=== PATIENT | female | born 1985 | race African-American/Black ===

== ENCOUNTER 2016-10-21 14:31 | Emergency (ER) | payer OTHER ==
[~2016-10-21] VITALS: Ht 170.2 cm; Wt 87.0 kg
[~2016-10-21 14:31] MED LIST: ACET-2708
[2016-10-21 15:07] VITALS: BP 99/76
[2016-10-21] MEDS ORDERED: KETOROLAC 60MG/2ML VIAL IM ONE (17:00)
== END 2016-10-21 17:27 | disposition home or self-care (01) ==
LOC: ER 16:59
DX: S39.012A Strain of muscle, fascia and tendon of lower back, initial encounter (principal); M25.512 Pain in left shoulder; M25.569 Pain in unspecified knee; V43.52XA Car driver injured in collision with other type car in traffic accident, initial encounter; Y93.89 Activity, other specified; Y92.411 Interstate highway as the place of occurrence of the external cause
CPT/HCPCS: 99283; J1885

== ENCOUNTER 2016-12-01 18:50 | Emergency (ER) | payer OTHER ==
[~2016-12-01] VITALS: Ht 167.6 cm; Wt 90.0 kg
[2016-12-01 21:45] VITALS: BP 120/75
== END 2016-12-01 22:58 | disposition home or self-care (01) ==
LOC: ER 22:03
DX: J03.90 Acute tonsillitis, unspecified (principal); Z88.5 Allergy status to narcotic agent
CPT/HCPCS: 99283

== ENCOUNTER 2018-05-22 08:06 | Emergency (ER) | payer MEDICAID, OTHER ==
[~2018-05-22] VITALS: Ht 165.1 cm; Wt 87.0 kg
[2018-05-22] MEDS ORDERED: IBUPROFEN 800MG TABLET PO ONE (09:30)
[2018-05-22 09:57] LABS: CLARITY URINE CLEAR (CLEAR); COLOR URINE YELLOW (YELLOW); KETONES URINE NEGATIVE (NEGATIVE); LEUKOCYTE ESTERASE URINE NEGATIVE (NEGATIVE); NITRITE URINE NEGATIVE (NEGATIVE); OCCULT BLOOD URINE NEGATIVE (NEGATIVE); PROTEIN URINE NEGATIVE (NEGATIVE); SPECIFIC GRAVITY URINE 1.017 (1.005-1.030); UROBILINOGEN URINE 0.2 E.U./dL (0.2-1.0)
[2018-05-22 11:00] VITALS: BP 108/70
== END 2018-05-22 11:03 | disposition home or self-care (01) ==
LOC: ER 09:18
DX: R10.2 Pelvic and perineal pain (principal); Z88.5 Allergy status to narcotic agent; Z79.899 Other long term (current) drug therapy
CPT/HCPCS: 76830; 76856; 81025; 99284